=== PATIENT | male | born 1995 | race Caucasian/White ===

== ENCOUNTER 2017-10-17 19:56 | Emergency (ER) | payer OTHER ==
[2017-10-17] MEDS ORDERED: NS 1,000 ML IV ONE (20:12)
[2017-10-17] MEDS ORDERED: ONDANSETRON 4 MG/2 ML VIAL IVP ONE (20:12)
--- NOTE | 2017-10-17 20:15 | EDPHY ---
H & P Time Seen by Provider: 10/17/17 20:07 HPI/ROS: CHIEF COMPLAINT: Fatigue, nausea HISTORY OF PRESENT ILLNESS: The patient is a 22-year-old man who comes to the emergency department complaining of fatigue, nausea, headache, occasional sweats and anorexia for the last 3-4 days. He also states he has not been getting much sleep. 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 He also states that he has intermittent nausea and will take a bite of food but does not feel like eating more. He states that his dad is a nurse and told him to check a urine ketones test which he did and found that he was ketotic. He was worried about his blood sugars and came to the ER. He has no history of diabetes. He has not had a fever. He has not vomited. He has not had diarrhea. He does feel dehydrated. He does not know of any sick contacts. No travel. He does smoke marijuana but denies other drugs. He occasionally drinks alcohol but not heavily. REVIEW OF SYSTEMS: Constitutional: See HPI denies fever EENTM: denies: blurred vision, double vision, nose congestion Respiratory: denies: cough, shortness of breath Cardiac: denies: chest pain, irregular heart rate, lightheadedness, palpitations Gastrointestinal/Abdominal: denies: abdominal pain, diarrhea, nausea, vomiting, blood streaked stools Genitourinary: denies: dysuria, frequency, hematuria, pain Musculoskeletal: denies: joint pain, muscle pain Skin: denies: lesions, rash, jaundice, bruising Neurological: denies: headache, numbness, paresthesia, tingling, dizziness, weakness Hematologic/Lymphatic: denies: blood clots, easy bleeding, easy bruising Immunologic/allergic: denies: HIV/AIDS, transplant EXAM: GENERAL: Well-appearing, overweight and in no acute distress. HEAD: Atraumatic, normocephalic. EYES: Pupils equal round and reactive to light, extraocular movements intact, sclera anicteric, conjunctiva are normal. ENT: TMs normal, nares patent, oropharynx clear without exudates. Moist mucous membranes. NECK: Normal range of motion, supple without lymphadenopathy or JVD. LUNGS: Breath sounds clear to auscultation bilaterally and equal. No wheezes rales or rhonchi. HEART: Regular rate and rhythm without murmurs, rubs or gallops. ABDOMEN: Soft, nontender, normoactive bowel sounds. No guarding, no rebound. No masses appreciated. BACK: No CVA tenderness, no spinal tenderness, step-offs or deformities EXTREMITIES: Normal range of motion, no pitting or edema. No clubbing or cyanosis. NEUROLOGICAL: Cranial nerves II through XII grossly intact. Normal speech, normal gait. 5/5 strength, normal movement in all extremities, normal sensation no splinter hemorrhage PSYCH: Normal mood, normal affect. SKIN: Warm, dry, normal turgor, no visible rashes or lesions. Source: Patient Exam Limitations: No limitations - Medical/Surgical History Hx Asthma: No Hx Chronic Respiratory Disease: No Hx Diabetes: No Hx Cardiac Disease: No Hx Renal Disease: No Hx Cirrhosis: No Hx Alcoholism: No Hx HIV/AIDS: No - Family History Significant Family History: No pertinent family hx - Social History Smoking Status: Never smoked Alcohol Use: Occasionally Drug Use: Marijuana Constitutional: Initial Vital Signs Temperature (C) 38.9 C H 10/17/17 20:07 Heart Rate 107 H 10/17/17 20:07 Respiratory Rate 16 10/17/17 20:07 Blood Pressure 156/83 H 10/17/17 20:07 O2 Sat (%) 97 10/17/17 20:07 O2 Delivery Mode Room Air Allergies/Adverse Reactions: No Known Allergies Allergy (Verified 10/17/17 20:07) Home Medications: Medication Instructions Recorded NK [No Known Home Meds] 10/17/17 Medical Decision Making - Diagnostics EKG Interpretation: An EKG obtained and was read and documented in trace view. Please see trace view for full reading and report. 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 He was not aware of this. He denies sore throat, runny nose , cough, shortness of breath, rashes, abdominal pain. He does have headache. No murmur on exam. We will initiate septic workup and possibly do a lumbar puncture unless alternative sources found. Patient does not have any neck stiffness, negative Kernig's and Brudzinski's. 10:00 p.m. the patient is feeling completely better after Tylenol and ibuprofen and fluids. He is talking and walking around the department. No longer has a headache. Pending LP and urine results. 11:00 p.m. the patient is doing well. Vital signs remain normal. He is eager to go. Lumbar puncture and other lab work unremarkable. Blood cultures are pending. No murmur appreciated. No high risk features for endocarditis. No IV drug abuse or immunocompromise. I recommended re-evaluation within 24 hr I return to the emergency department if his symptoms worsen. Patient family agree. Differential Diagnosis: Partial list of the Differential diagnosis considered include but were not limited to; viral syndrome, influenza, strep throat and although unlikely based on the history and physical exam, I also considered meningitis, sepsis, pneumonia, endocarditis. I discussed these differential diagnoses and the plan with the patient as well as the usual and expected course. The patient understands that the diagnosis is provisional and that in medicine we are not always correct and that further workup is often warranted. Usual and customary warnings were given. All of the patient's questions were answered. The patient was instructed to return to the emergency department should the symptoms at all worsen or return, otherwise to followup with the physician as we discussed. - Data Points Microbiology Results: MICROBIOLOGY 10/17/17 21:45 Cerebral Spinal Fluid Gram Stain - Final 10/17/17 20:50 Throat - Eswab Gram Stain - Final Medications Given: Discontinued Medications Acetaminophen (Tylenol) 1,000 mg PO EDNOW ONE Stop: 10/17/17 20:25 Last Admin: 10/17/17 21:19 Dose: 1,000 mg Sodium Chloride (Ns) 1,000 mls @ 0 mls/hr IV EDNOW ONE; Wide Open PRN Reason: Protocol Stop: 10/17/17 20:13 Last Admin: 10/17/17 21:32 Dose: 1,000 mls Sodium Chloride (Ns) 3,300 mls @ 6,600 mls/hr 30 ml/kg infuse over 30 min ( 3300 ml) IV EDNOW ONE PRN Reason: Protocol Stop: 10/17/17 20:51 Last Admin: 10/17/17 20:43 Dose: 3,300 mls Ibuprofen (Motrin) 800 mg PO EDNOW ONE Stop: 10/17/17 20:25 Last Admin: 10/17/17 21:18 Dose: 800 mg Ondansetron HCl (Zofran) 4 mg IVP EDNOW ONE Stop: 10/17/17 20:13 Last Admin: 10/17/17 20:43 Dose: 4 mg Point of Care Test Results: Chemistry 10/17/17 10/17/17 21:00 20:46 POC Sodium 137 mEq/L mEq/L (135-145) POC Potassium 3.4 mEq/L mEq/L (3.3-5.0) POC Chloride 98.0 mEq/L mEq/L (97-110) POC Total CO2 26 mEq/L mEq/L (22-31) POC BUN 7 mg/dL mg/dL (7-23) POC Creatinine 1.0 mg/dL mg/dL (0.7-1.3) POC Glucose 91 mg/dL mg/dL (70-100) POC Calcium 9.1 mg/dL mg/dL (8.5-10.4) POC Total Bilirubin 0.8 mg/dL mg/dL (0.1-1.4) POC GGT 11 IU/L IU/L (5-65) POC AST 24 IU/L IU/L (17-59) POC ALT 20 IU/L L IU/L (21-72) POC Alk Phosphatase 70 IU/L IU/L (38-126) POC Total Protein 7.3 g/dL g/dL (6.3-8.2) POC Albumin 4.2 g/dL g/dL (3.5-5.0) POC Amylase 26 IU/L L IU/L (30-110) Blood Gas/Lactic Acid-Venous 10/17/17 20:46 POC Lactic Acid Damian 1.6 mmol/L mmol/L (0.7-2.1) Influenza PCR Flu Nasal Swab Collection Date 10/17/17 Flu Nasal Swab Collection Time 20:52 Strep Strep Throat Swab Collection 10/17/17 Date Strep Throat Swab Swab 20:40 Collection Time Strep Result Not Detected Urine Dip Collection Date 10/17/17 Collection Time 22:28 Specific [place] (1.002-1.030) 1.025 PH (5.0-7.5) 6.0 Leukocytes (Negative) Negative Nitrites (Negative) Negative Protein (Negative) Trace Glucose (Negative) Negative Ketones (Negative) Trace Urobilnogen (0.2-1.0 EU) 1.0 Bilirubin (Negative) Negative Blood (Negative) Negative Departure - Departure Disposition: Home, Routine, Self-Care Clinical Impression: Fever and chills, Dehydration, Viral syndrome Condition: Fair Instructions: Fever in Adults (ED), Viral Syndrome (ED) Additional Instructions: Continue taking ibuprofen and Tylenol for fever control. Stay hydrated. Return if your symptoms worsen or are uncontrollable. Follow up within 24 hr your primary or return here. Referrals: NONE *PRIMARY CARE P,. [Primary Care Provider] - As per Instructions Anabelle White MD [[facility] [place] Primary Care Provider] - As per Instructions Stand Alone Forms: Parent/Guardian Work Excuse, Work Excuse
[2017-10-17] MEDS ORDERED: NS 3,300 ML IV ONE (20:22)
[2017-10-17] MEDS ORDERED: ACETAMINOPHEN 500 MG TAB PO ONE (20:24)
[2017-10-17] MEDS ORDERED: IBUPROFEN 800 MG TAB PO ONE (20:24)
--- NOTE | 2017-10-17 21:25 | CPEKG ---
Heart Rate: 109 RR Interval: 550 P-R Interval: 208 QRSD Interval: 100 QT Interval: 316 QTC Interval: 426 P [place]: 53 QRS [place]: 95 T Wave [place]: 31 EKG Severity - ABNORMAL ECG - EKG Impression: SINUS TACHYCARDIA Electronically Signed By: Jose Walker 17-Oct-2017 21:26:28
[2017-10-17 23:49] VITALS: BP 120/71
== END 2017-10-17 23:32 | disposition home or self-care (01) ==
LOC: CED 19:56
DX: B34.9 Viral infection, unspecified (principal); E86.9 Volume depletion, unspecified
CPT/HCPCS: 71046-PO; 80048-PO; 80076-PO; 82150-PO; 83605-PO; 96374; J2405